=== PATIENT | male | born 1995 | race Asian ===

== ENCOUNTER 2018-07-19 23:54 | Emergency (ER) | payer SELFPAY ==
[~2018-07-19] VITALS: Ht 185.4 cm; Wt 118.8 kg
[2018-07-20 01:45] VITALS: BP 131/73
== END 2018-07-20 01:45 | disposition home or self-care (01) ==
LOC: ED 23:54
DX: S61.512A Laceration without foreign body of left wrist, initial encounter (principal); F32.9 Major depressive disorder, single episode, unspecified; Z72.89 Other problems related to lifestyle; X78.1XXA Intentional self-harm by knife, initial encounter; Y93.89 Activity, other specified; Y92.090 Kitchen in other non-institutional residence as the place of occurrence of the external cause; Y99.8 Other external cause status; F17.210 Nicotine dependence, cigarettes, uncomplicated
CPT/HCPCS: 99406; J2001

== ENCOUNTER 2018-07-27 22:26 | Emergency (ER) | payer SELFPAY ==
[~2018-07-27] VITALS: Ht 185.4 cm; Wt 116.8 kg
[2018-07-27 22:40] VITALS: Ht 185.4 cm; Wt 116.8 kg
[2018-07-27 22:57] VITALS: BP 125/75
== END 2018-07-27 22:57 | disposition home or self-care (01) ==
LOC: ED 22:26
DX: S51.812D Laceration without foreign body of left forearm, subsequent encounter (principal); X58.XXXD Exposure to other specified factors, subsequent encounter; F32.9 Major depressive disorder, single episode, unspecified